=== PATIENT | female | born 1970 | race Caucasian/White ===

== ENCOUNTER 2023-07-26 18:56 | Emergency (ER) | payer BC, SELFPAY ==
[2023-07-26 19:03] VITALS: BP 130/84
[2023-07-26 20:08] VITALS: BMI 25.2
[2023-07-26] MEDS: TYLENOL 650 MG PO (20:57)
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
[2023-07-26] MEDS: MOTRIN 600 MG PO (22:54)
== END 2023-07-26 23:01 | disposition home or self-care (01) ==
LOC: EMR 18:56
PROVIDERS: EMERGENCY PHYSICIAN Emergency Medicine; FAMILY PHYSICIAN Family Medicine
DX: S06.0X0A Concussion without loss of consciousness, initial encounter (principal); W20.8XXA Other cause of strike by thrown, projected or falling object, initial encounter
CPT/HCPCS: 99284; 70450